=== PATIENT | female | born 1950 | race Two or more races ===

== ENCOUNTER 2021-08-22 06:18 | Outpatient (CLI) | payer OTHER | END 2021-08-22 06:23 | disposition home or self-care (01) | LOC: LAB 06:18 | PROVIDERS: ATTEND Urology | DX: N39.0 Urinary tract infection, site not specified (principal) ==

== ENCOUNTER 2021-08-22 07:32 | Outpatient (CLI) | payer OTHER | END 2021-08-22 07:34 | disposition home or self-care (01) | LOC: RX STUDY 07:32 | PROVIDERS: ATTEND Urology | DX: N81.10 Cystocele, unspecified (principal) | CPT/HCPCS: 51600; 74455; A9698 ==

== ENCOUNTER 2023-06-23 07:03 | Outpatient (CLI) | payer OTHER | END 2023-06-23 07:36 | disposition home or self-care (01) | LOC: RX STUDY 07:03 | PROVIDERS: ATTEND Otolaryngology | DX: R13.13 Dysphagia, pharyngeal phase (principal); R10.30 Lower abdominal pain, unspecified ==